=== PATIENT | female | born 1955 | race Caucasian/White ===

== ENCOUNTER 2020-05-31 22:55 | Inpatient (IN) | payer MEDICARE, MEDICAID ==
--- NOTE | 2020-05-31 23:05 | ED ---
Psych HPI - General Stated Complaint: mental health Time Seen by Provider: 05/31/20 23:04 Source: RN notes reviewed, old records reviewed Limitations: altered mental status - History of Present Illness Initial Comments: This is a 64-year-old female otherwise poor story coming in for psychotic evaluation under petition psychiatric illness. Patient's story is rambling and a poor strain secondary to constantly changing story, unable to follow patient's transfer MD Complaint: altered mental status -: days(s) Associated Psychiatric Symptoms: depression, suicidal ideation, racing thoughts, auditory hallucinations History of same: Yes Quality: constant Improves With: none Worsens With: medication Context: not taking psychiatric medications Associated Symptoms: denies other symptoms Treatments Prior to Arrival: placed on mental health hold - Related Data Allergies Allergy/AdvReac Type Severity Reaction Status Date / Time No Known Allergies Allergy Verified 06/01/20 06:55 Review of Systems ROS Statement: Those systems with pertinent positive or pertinent negative responses have been documented in the HPI. ROS Other: All systems not noted in ROS Statement are negative. Past Medical History - Past Family History family Family Medical History: No Reported History General Exam General appearance: alert, in no apparent distress Head exam: Present: atraumatic, normocephalic, normal inspection Eye exam: Present: normal appearance, PERRL, EOMI. Absent: scleral icterus, conjunctival injection, periorbital swelling ENT exam: Present: normal exam, mucous membranes moist Neck exam: Present: normal inspection. Absent: tenderness, meningismus, lymphadenopathy Respiratory exam: Present: normal lung sounds bilaterally. Absent: respiratory distress, wheezes, rales, rhonchi, stridor Cardiovascular Exam: Present: regular rate, normal rhythm, normal heart sounds. Absent: systolic murmur, diastolic murmur, rubs, gallop, clicks GI/Abdominal exam: Present: soft, normal bowel sounds. Absent: distended, tenderness, guarding, rebound, rigid Extremities exam: Present: normal inspection, full ROM, normal capillary refill. Absent: tenderness, pedal edema, joint swelling, calf tenderness Back exam: Present: normal inspection Neurological exam: Present: alert, oriented X3, CN II-XII intact Psychiatric exam: Present: normal affect, normal mood Skin exam: Present: warm, dry, intact, normal color. Absent: rash Course Vital Signs 05/31/20 06/01/20 06/01/20 22:59 02:00 05:54 Temperature 98.1 F Pulse Rate 90 75 78 Respiratory 19 18 18 Rate Blood Pressure 157/91 131/75 136/78 O2 Sat by Pulse 98 98 98 Oximetry - Reevaluation(s) Reevaluation #1: Medical record is reviewed Medical clear for psychiatric evaluation Patient seen in however psychiatry deemed admitted Medical Decision Making - Medical Decision Making 64 female to be admitted to mental health, patient has psychiatric illness and psychosis currently. - Lab Data Result diagrams: 06/01/20 08:15 06/01/20 08:15 Lab Results 06/01/20 06/01/20 Range/Units 04:05 05:09 Urine Color Light Yellow Urine Appearance Clear (Clear) Urine pH 6.0 (5.0-8.0) Ur Specific [place] 1.004 (1.001-1.035) Urine Protein Negative (Negative) Urine Glucose (UA) Negative (Negative) Urine Ketones Negative (Negative) Urine Blood Negative (Negative) Urine Nitrite Negative (Negative) Urine Bilirubin Negative (Negative) Urine Urobilinogen <2.0 (<2.0) mg/dL Ur Leukocyte Esterase Small H (Negative) Urine RBC 2 (0-5) /hpf Urine WBC 1 (0-5) /hpf Ur Squamous Epith Cells 1 (0-4) /hpf Urine Opiates Screen Not Detected (NotDetected) Ur Oxycodone Screen Not Detected (NotDetected) Urine Methadone Screen Not Detected (NotDetected) Ur Propoxyphene Screen Not Detected (NotDetected) Ur Barbiturates Screen Not Detected (NotDetected) U Tricyclic Antidepress Not Detected (NotDetected) Ur Phencyclidine Scrn Not Detected (NotDetected) Ur Amphetamines Screen Not Detected (NotDetected) U Methamphetamines Scrn Not Detected (NotDetected) U Benzodiazepines Scrn Not Detected (NotDetected) Urine Cocaine Screen Not Detected (NotDetected) U Marijuana (THC) Screen Not Detected (NotDetected) Coronavirus (PCR) Not Detected (Not Detectd) Disposition Clinical Impression: Acute psychosis Disposition: TRANSFER TO PSYCH HOSP/UNIT Condition: Fair Is patient prescribed a controlled substance at d/c from ED?: No
[2020-06-01 04:34] LABS: Appearance,Urine Clear (Clear); Bilirubin,Urine Negative (Negative); Blood,Urine Negative (Negative); Color,Urine Light Yellow; Glucose,Urine (UA) Negative (Negative); Ketones,Urine Negative (Negative); Leukocyte Esterase,Urine Small (Negative); Nitrite,Urine Negative (Negative); Protein,Urine Negative (Negative); RBC,Urine 2 /hpf (0-5); Specific Gravity,Urine 1.004 (1.001-1.035); Squamous Epithelial Cell,Urine 1 /hpf (0-4); Urobilinogen,Urine <2.0 mg/dL (<2.0); WBC,Urine 1 /hpf (0-5)
[2020-06-01 04:45] LABS: Amphetamine Screen,Urine Not Detected (NotDetected); Barbiturate Screen,Urine Not Detected (NotDetected); Benzodiazepines Screen,Urine Not Detected (NotDetected); Cocaine Screen,Urine Not Detected (NotDetected); Methadone Screen, Urine Not Detected (NotDetected); Opiate Screen,Urine Not Detected (NotDetected); Oxycodone Screen, Urine Not Detected (NotDetected); Phencyclidine Screen,Urine Not Detected (NotDetected); Tricyclic Antidepressant,Urine Not Detected (NotDetected); Urn Cannabinoid Scrn Not Detected (NotDetected)
[2020-06-01] MEDS ORDERED: MAGNESIUM HYDROXIDE 2,400 MG/10 ML CUP PO PRN (06:40)
[2020-06-01] MEDS ORDERED: LORazepam 1 MG TAB PO PRN (06:40)
[2020-06-01] MEDS ORDERED: MAG HYDROX/AL HYDROX/SIMETH 30 ML CUP PO PRN (06:40)
[2020-06-01] MEDS ORDERED: HALOPERIDOL LACTATE 5 MG/ML 1 ML VIAL IM PRN (06:42)
[2020-06-01] MEDS ORDERED: LORazepam 2 MG/ML INJ IM PRN (06:48)
[2020-06-01] MEDS ORDERED: haloperidoL 5 MG TAB PO SCH (09:00)
[2020-06-01 09:16] LABS: Basophils # (A) 0.1 k/uL (0-0.2); Basophils % (A) 1 %; Eosinophils # (A) 0.1 k/uL (0-0.7); Eosinophils % (A) 1 %; HCT 39.6 % (34.0-46.0); HGB 12.9 gm/dL (11.4-16.0); Lymphocytes # (A) 1.8 k/uL (1.0-4.8); Lymphocytes % (A) 34 %; MCH 33.7 pg (25.0-35.0); MCHC 32.5 g/dL (31.0-37.0); MCV 103.6 fL (80.0-100.0); Macrocytosis Slight; Mean Platelet Volume 7.5; Monocytes # (A) 0.3 k/uL (0-1.0); Monocytes % (A) 5 %; Neutrophils # (A) 3.1 k/uL (1.3-7.7); Neutrophils % (A) 58 %; Platelet Count 179 k/uL (150-450); RBC 3.82 m/uL (3.80-5.40); RDW 13.8 % (11.5-15.5); WBC 5.3 k/uL (3.8-10.6)
[2020-06-01 09:29] LABS: ALT 129 U/L (4-34); AST 152 U/L (14-36); African American GFR (CKD) >90 (>60 ml/min/1.73 sqM); Albumin 2.8 g/dL (3.5-5.0); Alkaline Phosphatase 100 U/L (38-126); Anion Gap 3 mmol/L; Blood Urea Nitrogen 2 mg/dL (7-17); Calcium 7.8 mg/dL (8.4-10.2); Carbon Dioxide 25 mmol/L (22-30); Chloride 106 mmol/L (98-107); Cholesterol 186 mg/dL (<200); Glucose 91 mg/dL (74-99); HDL Cholesterol 45 mg/dL (40-60); LDL Cholesterol,Calculated 122 mg/dL (0-99); Non-African American GFR(CKD) >90 (>60 ml/min/1.73 sqM); Potassium 4.2 mmol/L (3.5-5.1); Sodium 134 mmol/L (137-145); Total Bilirubin 1.1 mg/dL (0.2-1.3); Triglycerides 93 mg/dL (<150)
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
[2020-06-01] MEDS ORDERED: haloperidoL 5 MG TAB PO PRN (12:51)
[2020-06-01 22:33] LABS: Hemoglobin A1C 4.5 % (4.0-6.0)
[2020-06-02] MEDS: haloperidoL 1 MG TAB PO SCH ×2 (09:05→21:02)
--- NOTE | 2020-06-02 09:05 | P.PN ---
Progress Note - Text Progress Note Date: 06/02/20 Clinical Problems: Delusional disorder paranoid type, unspecified neurocognitive disorder with behavioral disturbances, alcohol use disorder unspecified in sustained remission, opiate use disorder unspecified in sustained remission, rule out major depressive disorder Interim history: I reviewed the medical record and interviewed the patient. She had no specific concerns. She refused to allow us to speak with anyone from her family. She stated that they are all "in this together" trying to get power of workers compensation attorney to have the money that she will be awarded from her lawsuits. She is sleeping through the night but is not attending therapeutic groups or activities. She's had no episodes of behavioral dyscontrol. Mental status exam: He presented as a stocky 64-year-old female who was pleasant on approach. She made eye contact and attended to interview. She had a blunted facial expression. She showed psychomotor retardation but no abnormal movements. Her speech was nonspontaneous but had normal rate and rhythm. Her affect was guarded. She did not express suicidal ideation or wishes. He feels helpless and hopeless regarding the organized conspiracy by her family to gain power of workers compensation attorney. She expressed paranoid ideation and organize paranoid delusional belief. Her thinking was concrete but her associations are goal-directed. She did not appear to be responding to internal stimuli. Assessment: She remains paranoid and continues to maintain the well organize paranoid delusional belief that involves her family. Plan: Continue inpatient treatment. Deferral hearing pending. Begin Haldol 1 mg by mouth twice a day and titrated according to medical affect intolerance. Begin donepezil 5 mg at bedtime and monitor for tolerance and adverse effects. Encourage her to allow us to speak with someone from her family. Encourage participation in therapeutic groups and activities. Evaluate clinical status response to treatment daily basis.
[2020-06-02] MEDS: DONEPEZIL 5 MG TAB PO SCH (21:01)
[2020-06-02] MEDS: TEMAZEPAM 15 MG CAP PO PRN (21:01)
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
[2020-06-03] MEDS: haloperidoL 1 MG TAB PO SCH ×2 (08:08→19:52)
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
[2020-06-03] MEDS: DONEPEZIL 5 MG TAB PO SCH (19:52)
[2020-06-03] MEDS: ACETAMINOPHEN TAB 325 MG TAB PO PRN ×2 (21:04→21:56)
[2020-06-03] MEDS: TEMAZEPAM 15 MG CAP PO PRN (21:05)
[2020-06-04] MEDS: ACETAMINOPHEN TAB 325 MG TAB PO PRN ×3 (08:40→16:36)
[2020-06-04] MEDS: haloperidoL 1 MG TAB PO SCH ×2 (08:40→20:12)
[2020-06-04] MEDS ORDERED: IBUPROFEN 600 MG TAB PO STA ×2 (13:50→17:46)
[2020-06-04] MEDS: diphenhydrAMINE 50 MG CAP PO SCH ×2 (14:12→20:13)
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
[2020-06-04] MEDS: DONEPEZIL 5 MG TAB PO SCH (20:12)
[2020-06-04] MEDS: IBUPROFEN 600 MG TAB PO SCH (21:56)
[2020-06-04] MEDS: TEMAZEPAM 15 MG CAP PO PRN (21:57)
[2020-06-05] MEDS: haloperidoL 1 MG TAB PO SCH (08:22)
[2020-06-05] MEDS: IBUPROFEN 600 MG TAB PO SCH ×3 (08:22→21:18)
[2020-06-05] MEDS: diphenhydrAMINE 50 MG CAP PO SCH ×2 (08:22→20:33)
[2020-06-05] MEDS ORDERED: TEMAZEPAM 30 MG CAP PO PRN (11:06)
[2020-06-05] MEDS: ACETAMINOPHEN TAB 325 MG TAB PO PRN (13:27)
--- NOTE | 2020-06-05 13:28 | P.PN ---
Progress Note - Text Progress Note Date: 06/05/20 Clinical Problems: Delusional disorder paranoid type, unspecified neurocognitive disorder with behavioral disturbances, alcohol use disorder unspecified in sustained remission, opiate use disorder unspecified in sustained remission, rule out major depressive disorder Interim history: I reviewed the medical record and interviewed the patient and discussed her treatment and treatment during team meeting. She complains of poor sleep and requested "something else" to help her sleep. According to the nursing record she slept only 4 hours last night after receiving 15 mg of temazepam in addition to her prescribed nighttime medications. She continues to maintain that her family are colluding with her [id number] to gain power of community artist community artist to have access to money that she will be warranted from to future lawsuits. She so continues to believe that her [id number] has told members of her mormon that she has money that she wishes to give to everyone. However, she appeared less distressed as she talked about these concerns. Mental status exam: He presented as a stocky 64-year-old female who was pleasant on approach. She made eye contact and attended to interview. She had a blunted facial expression. She showed psychomotor retardation but no abnormal movements. Each was spontaneous with normal rate, rhythm and volume. Her affect was constricted but stable She did not express suicidal ideation or wishes. He feels helpless and hopeless regarding the organized conspiracy by her family to gain power of community artist. She expressed paranoid ideation and organize paranoid delusional belief. Her thinking was concrete but her associations are goal-directed. She did not appear to be responding to internal stimuli. Assessment: She remains paranoid and continues to maintain the well organize paranoid delusional belief that involves her family. Plan: Continue inpatient treatment. Deferral hearing pending. Increase Haldol to 2 mg by mouth twice a day and titrated according to medical affect intolerance. Continue donepezil 5 mg at bedtime and monitor for tolerance and adverse effects. Increase temazepam to 30 mg at bedtime when necessary for sleep. Encourage her to allow us to speak with someone from her family. Encourage participation in therapeutic groups and activities. Evaluate clinical status response to treatment daily basis.
[2020-06-05] MEDS: DONEPEZIL 5 MG TAB PO SCH (20:33)
[2020-06-05] MEDS ORDERED: TEMAZEPAM 15 MG CAP PO PRN (21:29)
[2020-06-06] MEDS: IBUPROFEN 600 MG TAB PO SCH ×3 (08:30→20:56)
[2020-06-06] MEDS: diphenhydrAMINE 50 MG CAP PO SCH (08:31)
[2020-06-06] MEDS: diphenhydrAMINE 25 MG CAP PO SCH ×2 (09:28→20:56)
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
[2020-06-06] MEDS ORDERED: QUEtiapine 100 MG TAB PO SCH (21:00)
[2020-06-06] MEDS: DONEPEZIL 5 MG TAB PO SCH (21:07)
[2020-06-07 06:55] VITALS: RESP 16
[2020-06-07] MEDS: IBUPROFEN 600 MG TAB PO SCH ×3 (08:03→20:50)
[2020-06-07] MEDS: diphenhydrAMINE 25 MG CAP PO SCH ×2 (08:03→20:51)
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
[2020-06-07] MEDS: DONEPEZIL 5 MG TAB PO SCH (20:51)
[2020-06-07] MEDS ORDERED: QUEtiapine 200 MG TAB PO SCH (21:00)
[2020-06-08] MEDS: diphenhydrAMINE 25 MG CAP PO SCH (08:56)
[2020-06-08] MEDS: IBUPROFEN 600 MG TAB PO SCH ×3 (08:56→20:46)
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
[2020-06-08 13:24] VITALS: BMI 34.0
[2020-06-08] MEDS: DONEPEZIL 5 MG TAB PO SCH (20:45)
[2020-06-08] MEDS: QUEtiapine 100 MG TAB PO SCH (20:46)
[2020-06-09] MEDS: IBUPROFEN 600 MG TAB PO SCH ×3 (08:36→21:48)
--- NOTE | 2020-06-09 10:54 | P.PN ---
Progress Note - Text Progress Note Date: 06/09/20 Clinical Problems: Delusional disorder paranoid type, unspecified neurocognitive disorder with behavioral disturbances, alcohol use disorder unspecified in sustained remission, opiate use disorder unspecified in sustained remission, rule out major depressive disorder Interim history: I reviewed the medical record and interviewed the patient and discussed her treatment and treatment during team meeting. She denied side effects the increased dose of Seroquel. Her beliefs about being deprived of ownership of homes, conspiracy by her [id number] and anticipating a large legal settlement remained fixed. However, she is much less distressed and preoccupied by these beliefs. She has a deferral hearing scheduled for 06/12/2019. Mental status exam: He presented as a stocky 64-year-old female who was pleasant on approach. She made eye contact and attended to interview. She had a blunted but bright facial expression. Her gait was slow but steady. Her speech was spontaneous with normal rate, rhythm and volume. Her affect was blunted but stable and appropriate. She did not express suicidal ideation or wishes. He feels helpless and hopeless regarding the organized conspiracy by her family to gain power of trademark attorney. She again expressed paranoid ideation and an organize paranoid delusional belief. Her thinking was concrete but her associations are goal-directed. She did not appear to be responding to internal stimuli. Assessment: She remains paranoid and continues to maintain the well organize paranoid delusional beliefs. Plan: Continue inpatient treatment. Plan to discharge after her deferral hearing. Continue Seroquel to 300 mg at bedtime. Continue donepezil 5 mg at bedtime and monitor for tolerance and adverse effects. Encourage her to allow us to speak with someone from her family. Encourage participation in therapeutic groups and activities. Evaluate clinical status response to treatment daily basis.
[2020-06-09] MEDS: QUEtiapine 100 MG TAB PO SCH (21:48)
[2020-06-09] MEDS: DONEPEZIL 5 MG TAB PO SCH (21:48)
[2020-06-10] MEDS: IBUPROFEN 600 MG TAB PO SCH ×3 (08:45→20:41)
--- NOTE | 2020-06-10 14:29 | P.PN ---
Progress Note - Text Progress Note Date: 06/10/20 Clinical Problems: Delusional disorder paranoid type, unspecified neurocognitive disorder with behavioral disturbances, alcohol use disorder unspecified in sustained remission, opiate use disorder unspecified in sustained remission, rule out major depressive disorder Interim history: I reviewed the medical record and interviewed the patient. She denied feeling depressed or having thoughts of or suicide. She denied side effects the increased dose of Seroquel. She again expressed the chronic and fixed delusional beliefs. These place has not interfered with her ability to attend therapeutic groups and activities or converse with staff or peers. She has a deferral hearing scheduled for 06/12/2019. Mental status exam: He presented as a stocky 64-year-old female who was pleasant on approach. She made eye contact and attended to interview. She had a blunted but bright facial expression. Her gait was slow but steady. Her speech was spontaneous with normal rate, rhythm and volume. Her affect was blunted but stable and appropriate. She did not express suicidal ideation or wishes. He feels helpless and hopeless regarding the organized conspiracy by her family to gain power of commercial real estate attorney. She again expressed paranoid ideation and an organize paranoid delusional belief. Her thinking was concrete but her associations are goal-directed. She did not appear to be responding to internal stimuli. Assessment: She continues to maintain the well organize paranoid delusional beliefs. Plan: Continue inpatient treatment. Plan to discharge after her deferral hearing. Continue Seroquel to 300 mg at bedtime. Continue donepezil 5 mg at bedtime and monitor for tolerance and adverse effects. Encourage her to allow us to speak with someone from her family. Encourage participation in therapeutic groups and activities. Evaluate clinical status response to treatment daily basis.
[2020-06-10] MEDS: QUEtiapine 100 MG TAB PO SCH (20:41)
[2020-06-10] MEDS: DONEPEZIL 5 MG TAB PO SCH (20:43)
[2020-06-11 07:10] VITALS: BP 110/57; PULSE 75
[2020-06-11] MEDS: IBUPROFEN 600 MG TAB PO SCH ×3 (08:34→20:47)
[2020-06-11 13:15] VITALS: TEMP 97.3
[2020-06-11] MEDS ORDERED: diphenhydrAMINE 25 MG CAP PO PRN (14:47)
--- NOTE | 2020-06-11 14:51 | P.PN ---
Progress Note - Text Progress Note Date: 06/11/20 Clinical Problems: Delusional disorder paranoid type, unspecified neurocognitive disorder with behavioral disturbances, alcohol use disorder unspecified in sustained remission, opiate use disorder unspecified in sustained remission, rule out major depressive disorder Interim history: I reviewed the medical record and interviewed the patient. She complained of a rash and itching on her arms and chest. She pointed to blemishes on her arms and chest but I did not see the changes that she was describing. She requested Benadryl for the itching. She was not preoccupied with her chronic and fixed delusional beliefs. She denied feeling depressed unless forward to discharge where she plans to return temporarily to her ex-'s home. She has a deferral hearing scheduled for 06/12/2019. Mental status exam: He presented as a stocky 64-year-old female who was pleasant on approach. She made eye contact and attended to interview. She had a blunted but bright facial expression. Her gait was slow but steady. Her speech was spontaneous with normal rate, rhythm and volume. Her affect was blunted but stable and appropriate. She did not express suicidal ideation or wishes. She denied feeling hopeless, helpless or worthless. She did not perseverate on her delusional beliefs. Her thinking was concrete but her associations are goal-directed. She did not appear to be responding to internal stimuli. Assessment: She is much improved from admission. She is complaining of a skin rash for which is requesting Benadryl. Plan: Continue inpatient treatment. Plan to discharge after her deferral hearing. Benadryl 25 mg 3 times a day when necessary for itching. Continue Seroquel to 300 mg at bedtime. Continue donepezil 5 mg at bedtime and monitor for tolerance and adverse effects. Encourage her to allow us to speak with someone from her family. Encourage participation in therapeutic groups and activities. Evaluate clinical status response to treatment daily basis.
[2020-06-11] MEDS: DONEPEZIL 5 MG TAB PO SCH (20:47)
[2020-06-11] MEDS: QUEtiapine 100 MG TAB PO SCH (20:47)
[2020-06-12] MEDS: IBUPROFEN 600 MG TAB PO SCH (08:44)
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
[2020-06-12] MEDS ORDERED: IBUPROFEN 800 MG TAB PO SCH (12:30)
[2020-06-12] MEDS ORDERED: QUEtiapine 100 MG TAB PO SCH (21:00)
== END 2020-06-12 15:23 | disposition home or self-care (01) | DRG 885 ==
LOC: EC 22:55 → 3MHU 06-01 05:42
PROVIDERS: ADMIT Psychiatry & Neurology Psychiatry; ATTEND Psychiatry & Neurology Psychiatry
DX: F22 Delusional disorders (principal); F01.51 Vascular dementia, unspecified severity, with behavioral disturbance; R45.851 Suicidal ideations; F11.11 Opioid abuse, in remission; J44.9 Chronic obstructive pulmonary disease, unspecified; Z20.828 Contact with and (suspected) exposure to other viral communicable diseases; F10.11 Alcohol abuse, in remission; B19.20 Unspecified viral hepatitis C without hepatic coma; M54.9 Dorsalgia, unspecified; R21 Rash and other nonspecific skin eruption; E78.5 Hyperlipidemia, unspecified; I10 Essential (primary) hypertension; Z86.19 Personal history of other infectious and parasitic diseases; Z71.6 Tobacco abuse counseling; Z87.891 Personal history of nicotine dependence; Z62.810 Personal history of physical and sexual abuse in childhood; Z87.81 Personal history of (healed) traumatic fracture
CPT/HCPCS: 80053; 80061; 80306; 81001; 82075; 83036; 84443; 85025; 87635; 99285